=== PATIENT | male | born 1955 | race African-American/Black ===

== ENCOUNTER 2021-11-06 11:31 | Outpatient (REF) | payer MEDICARE, SELFPAY ==
[2021-11-06 13:35] LABS: Vitamin D 25-OH Total 31.7 ng/mL (>30)
[2021-11-06 13:41] LABS: Vitamin B12 265 pg/mL (200-900)
[2021-11-07 03:44] LABS: Syphilis Screen Nonreactive (Nonreactive)
== END 2021-11-06 11:32 | disposition home or self-care (01) ==
LOC: HO.LAB 11:31
PROVIDERS: PCP Nurse Practitioner Family; Visit Provider Psychiatry & Neurology Neurology
DX: G30.9 Alzheimer's disease, unspecified (principal)
CPT/HCPCS: 36415; 82306; 82607; 86780

== ENCOUNTER 2021-11-19 13:23 | Outpatient (REF) | payer MEDICARE, SELFPAY ==
--- NOTE | ~2021-11-19 | MR_ITS ---
EXAMINATION: MR BRAIN WITHOUT CONTRAST CLINICAL INFORMATION: 66-year-old with memory loss. Alzheimer's dementia. COMPARISON: None TECHNIQUE: Multiplanar multisequence MR imaging of the brain was done without IV contrast. FINDINGS: Brain Volume: Mild generalized diffuse brain parenchymal volume loss, with a relatively symmetric biparietal predominance within the limitations of a qualitative assessment. Structural: No malformations. Brain and Meninges: DWI sequence demonstrates no restricted diffusion. Specifically, there is no evidence for acute or subacute cerebral ischemia. Scattered punctate and patchy zones of FLAIR/T2 signal hyperintensity are seen in the white matter of both cerebral hemispheres with a periatrial predominance, which are nonspecific findings but likely reflect mild chronic ischemic microangiopathy. There is no evidence for hemorrhage, hemosiderin staining or abnormal mineral deposition. No extra-axial fluid collections, space-occupying process or mass effect. Mildly prominent perivascular spaces noted in the biparietal white matter. Ventricles and Subarachnoid Spaces: The ventricular system and subarachnoid spaces are within normal limits. There is no hydrocephalus. Orbital Structures: The visualized orbital structures are grossly unremarkable within the limitations of the study. Vascular: Signal voids are noted in the visualized major intracranial vessels. Sinuses and Osseous Structures: Minor mucosal thickening in the ethmoid complex is noted with nasal septal deviation to the left. MR/MR head/brain wo con IMPRESSION: 1. 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 2. No hemorrhage, extra-axial fluid collection, space-occupying process, mass effect or hydrocephalus. 3. Mild generalized diffuse brain parenchymal volume loss with a relatively symmetric biparietal predominance suggested within the limitations of a qualitative assessment.
== END 2021-11-19 13:24 | disposition home or self-care (01) ==
LOC: HO.MRI 13:23
PROVIDERS: Visit Provider Psychiatry & Neurology Neurology
DX: G30.9 Alzheimer's disease, unspecified (principal)
CPT/HCPCS: 70551

== ENCOUNTER 2023-07-11 11:16 | Outpatient (REF) | payer OTHER, SELFPAY ==
--- NOTE | ~2023-07-11 | MR_ITS ---
MR/MR lumbar spine wo con IMPRESSION: There is severe spinal canal stenosis at L3-L4 with mass effect on the cauda equina nerve roots and nerve root redundancy. This is predominantly attributable to a large left central/subarticular T2 hyperintense rounded lesion. Finding may represent extruded disc material, but given close approximation of the left facet joint, a component of synovial cyst is not excluded. Correlation for cauda equina symptomatology and surgical evaluation is recommended. Additional multilevel degenerative changes as described above with advanced neural foraminal stenoses and exiting nerve root impingement. Lateral recess narrowing with descending nerve root abutment as described above. Exophytic right renal lesion with layering T1 hyperintense signal likely represents a cyst with proteinaceous/hemorrhagic debris. As this exam was dictated after hours, a [employer] information technology administrator will contact the ordering provider with findings and recommendations at the start of the next business day. EXAMINATION: MR LUMBAR SPINE WITHOUT CONTRAST CLINICAL INFORMATION: Radiculopathy, spondylosis without myelopathy COMPARISON: None available. TECHNIQUE: MRI of the lumbar spine was obtained using routine sequences without the administration of intravenous contrast. FINDINGS: This examination assumes the presence of 5 lumbar type vertebral bodies. For the purposes of this examination, the L5-S1 intervertebral disc space is visualized on axial series 6 image 25. The normal lumbar lordosis is preserved. Shallow dextrocurvature of the lumbar spine. Retrolisthesis of L2-L3 with grade 1 anterolisthesis of L5-S1. Lumbar vertebral body heights are maintained. Multilevel degenerative endplate edema is noted including at L1-L2, L2-L3, L3-L4, L4-L5. The conus medullaris is normal in signal intensity and terminates at the level of L1. L1-L2: Disc bulge with central disc protrusion. Facet arthropathy with ligamentum flavum redundancy and mild prominent epidural fat. There is narrowing of the lateral recesses with mild spinal canal stenosis. Moderate right and mild to moderate left neural foraminal stenosis. L2-L3: Disc bulge and facet arthropathy with ligamentum flavum redundancy and prominent epidural fat. Small bilateral facet joint effusions are noted. There is narrowing of lateral recesses and mild narrowing of the thecal sac. Mild to moderate bilateral neural foraminal stenosis. L3-L4: Disc bulge with central disc extrusion extending superiorly. Additionally, there is a lobulated, T2 hyperintense focus along the left ventral aspect of the thecal sac effacing the left lateral recess and contributes to severe spinal canal stenosis. There is mass effect on the cauda equina nerve roots with mild nerve root redundancy. Facet arthropathy with ligamentum flavum hypertrophy. Moderate to severe narrowing of the proximal left neural foramen with abutment of the exiting left L3 nerve root. Moderate right neural foraminal stenosis. L4-L5: Disc bulge with right subarticular/foraminal disc protrusion. Facet arthropathy with ligamentum flavum hypertrophy. There is mild spinal canal stenosis with narrowing of the lateral recesses abutting the descending L5 nerve roots bilaterally. Severe right neural foraminal stenosis with impingement of the exiting right L4 nerve root. Moderate to severe left neural foraminal stenosis with abutment of the left L4 nerve root. L5-S1: Disc bulge with small central disc extrusion extending superiorly. Severe facet arthropathy with ligamentum flavum redundancy. There is an additional right subarticular/proximal foraminal disc protrusion which asymmetrically effaces the right lateral recess and abuts the descending right S1 nerve root. Severe right neural foraminal stenosis with exiting nerve root impingement. Severe left neural foraminal stenosis with exiting nerve root impingement. Partially visualized exophytic right renal lower pole cyst. Additional exophytic right renal cyst with layering intrinsically T1 hyperintense contents likely represents a cyst with hemorrhagic/proteinaceous debris.
== END 2023-07-11 11:17 | disposition home or self-care (01) ==
LOC: HO.MRI 11:16
PROVIDERS: PCP Nurse Practitioner Family; Visit Provider Physician Assistant
DX: M54.16 Radiculopathy, lumbar region (principal); M43.16 Spondylolisthesis, lumbar region; M47.816 Spondylosis without myelopathy or radiculopathy, lumbar region
CPT/HCPCS: 72148